=== PATIENT | female | born 1975 | race African-American/Black ===

== ENCOUNTER 2017-03-05 17:14 | Emergency (ER) | payer MEDICAID ==
[~2017-03-05] VITALS: Ht 162.6 cm; Wt 67.6 kg
[~2017-03-05 17:14] MED LIST: ACETAMINOPHEN-1 EAC1 ORAL; ALMACONE-2 LIQ355 ML PO; AMBIEN10 MG PO; ATIVAN0.5 MG PO; AUGMENTIN 875-1 EAC1 ORAL; AURALGAN OTIC1 DROP LEFT EAR; CILOXAN5 ML OP; CIPRO HC OTIC S10 M1 LEFT EYE; CIPRO500 MG PO; COLACE100 MG ORAL; CORTISPORIN EAR10 ML OTIC; DOXYCYCLINE MO100 MG ORAL; KEFLEX500 MG ORAL; KENALOG 0.1% CR15 GM TOPIC; MACROBID100 MG ORAL; MOBIC15 MG ORAL; NEXAFED30 MG ORAL; NEXIUM40 MG ORAL; NKM; NORCO 5-325 TA1 EACH ORAL; NORCO 5-325 TA1 EACH PO; ONDANSETRON ODT4 MG ORAL; PERCOCET 5-3251 EACH ORAL; PREDNISONE20 MG ORAL; PROMETHAZINE-C118 M1 ORAL; PROTONIX40 MG PO; ROBAXIN-750750 MG PO; TRAMADOL HCL50 MG ORAL; TRAMADOL HCL50 MG PO; TYLENOL EXTRA500 MG ORAL; VICODIN ES 7.51 EACH PO; ZOFRAN ODT4 MG ORAL
[2017-03-05 17:30] VITALS: BP 141/99
[2017-03-05] MEDS ORDERED: Fluorescein Strips LEFT EYE ONE (17:45)
[2017-03-05] MEDS ORDERED: Tetracaine 0.5% Opth Soln LEFT EYE ONE (17:45)
[2017-03-05] MEDS ORDERED: Morgan Lens TOPIC ONE (17:45)
--- NOTE | 2017-03-05 18:29 | Emergency Room Report ---
History of Present Illness General Chief Complaint: Eye Problems Source: Patient Present Illness HPI 41 YO Female presents to the ED c/o left eye pain described as burning 10/10 in severity, photophobia, and lacrimation, despite rinsing under water at home. denies floaters, loss of vision, PINEDA , or painful eye movements. pt. states some intermittent scratching sensations. pt. removed contacts as well. Pt. states she accidentally used a cleaning solution to soak her contacts in. and acute onset after applying her contacts. Denies CP, Palpitations, LOC, AMS, dizziness , Changes in Vision, Sensation, paresthesias, or a sudden severe headache. Allergies: Coded Allergies: IBUPROFEN (Verified Allergy, Severe, 04/27/13) abd ulcer Patient History Past Medical History: see triage record Past Surgical History: none Pertinent Family History: none Last Menstrual Period: na Now: No Immunizations: UTD Reviewed Nursing Documentation: PMH: Agreed, PSxH: Agreed Nursing Documentation-PMH Past Medical History: No History, Except For Hx Cardiac Problems: No - SCIATICA Hx Diabetes: Yes - Gestational Hx Gastrointestinal Problems: Yes - GERD Review of Systems All Other Systems: negative except mentioned in HPI Physical Exam Vital Signs Date Time Temp Pulse Resp B/P Pulse Ox O2 Delivery O2 Flow Rate FiO2 03/05/17 17:20 98.4 92 18 141/99 98 Room Air Sp02 EP Interpretation: reviewed, normal General Appearance: no apparent distress, alert, GCS 15, non-toxic Head: normocephalic, atraumatic Eyes: left eye photophobia, left eye visual acuity - 20/40Left eye, and 20/25 both, bilateral eye EOMI, bilateral eye PERRL, bilateral eye normal inspection ENT: hearing grossly normal, normal pharynx, no angioedema, normal voice Neck: full range of motion, supple/symm/no masses Respiratory: lungs clear, normal breath sounds, speaking full sentences Cardiovascular #1: regular rate, rhythm Rectal: deferred Musculoskeletal: back normal, gait/station normal, normal range of motion, non- tender Neurologic: alert, oriented x3, responsive, motor strength/tone normal, sensory intact, speech normal Psychiatric: judgement/insight normal, memory normal, mood/affect normal Skin: normal color, no rash, warm/dry, well hydrated Medical Decision Making PA Attestation Dr. Alonso is my supervising Physician whom patient management has been discussed with. Diagnostic Impression: Primary Impression: Conjunctivitis, chemical Qualified Codes: H10.212 - Acute toxic conjunctivitis, left eye ER Course 41 YO Female presents to the ED c/o left eye pain described as burning 10/10 in severity, photophobia, and lacrimation, despite rinsing under water at home. denies floaters, loss of vision, PINEDA , or painful eye movements. pt. states some intermittent scratching sensations. pt. removed contacts as well. Pt. states she accidentally used a cleaning solution to soak her contacts in. and acute onset after applying her contacts. Denies CP, Palpitations, LOC, AMS, dizziness , Changes in Vision, Sensation, paresthesias, or a sudden severe headache. - Pr. reports Contact lens use. Ddx considered but are not limited to: corneal abrasion, acute glaucoma, globe rupture, FB, Corneal Ulcer, conjunctivitis. Iridis Vital signs: are WNL, pt. is afebrile H&PE are most consistent with: Chemical Conjunctivitis ORDERS: -Tetracaine and Fluorescein Stain of the Left eye: -No appreciable Increase in fluorescein uptake. Negative Meghann sign. Pt. had positive relief of pain with tetracaine drops. there was negative evidence of Fb, deep ulcer, or rupture. - Balaji- pen measurements: 16,12,18 ED INTERVENTIONS: - [place] Irrigation with 500cc NS DISCHARGE: At this time pt. is stable for d/c to home. Will provide printed patient care instructions, and any necessary prescriptions. Care plan and follow up instructions have been discussed with the patient prior to discharge. . Last Vital Signs Date Time Temp Pulse Resp B/P Pulse Ox O2 Delivery O2 Flow Rate FiO2 03/05/17 17:30 98.5 92 18 141/99 98 Room Air Disposition: HOME, SELF-CARE Condition: Stable Scripts Ofloxacin (OCUFLOX) 5 Ml Drops 2 DROP OP BID for 7 Days, #5 ML Prov: Rose Marie Simpson P.A. 03/05/17 Diclofenac Sodium (Diclofenac Sodium) 5 Ml Drops 1 DROP OP QID, #5 ML Prov: Rose Marie Simpson P.A. 03/05/17 Referrals: [facility],REFERRING (PCP) Patient Instructions: Chemical Conjunctivitis Additional Instructions: Take medications as directed. Follow up with a BODY WELDER IN 48 hours, also follow up with your Primary Care Provider in 3-5 days, even if your symptoms have resolved. --Please review list of primary care clinics, if you do not already have a primary care provider Return sooner to ED if new symptoms occur, or current symptoms become worse. Do not drink alcohol, drive, or operate heavy machinery while taking [ ] as this may cause drowsiness. - Please note that this Emergency Department Report was dictated using [employer] melt supervisor technology software, occasionally this can lead to erroneous entry secondary to interpretation by the dictation equipment. Rose Marie Simpson Mar 05, 2017 18:29
[2017-03-05] MEDS ORDERED: DICLOFENAC SODIU5 ML OP (18:31)
[2017-03-05] MEDS ORDERED: OCUFLOX5 ML OP (18:31)
[2017-03-05 18:43] VITALS: BP 135/81
== END 2017-03-05 18:45 | disposition home or self-care (01) ==
LOC: EMR 17:47
DX: H10.212 Acute toxic conjunctivitis, left eye (principal); K21.9 Gastro-esophageal reflux disease without esophagitis; Z88.6 Allergy status to analgesic agent
CPT/HCPCS: 99284

== ENCOUNTER 2017-09-28 17:43 | Emergency (ER) | payer MEDICAID ==
[~2017-09-28] VITALS: Ht 162.6 cm; Wt 67.6 kg
[~2017-09-28 17:43] MED LIST changes: +DICLOFENAC SODIU5 ML OP; +OCUFLOX5 ML OP
[2017-09-28] MEDS ORDERED: Tetanus/Diptheria/Pertussis Vaccine 0.5ml Syr IM ONE (18:00)
[2017-09-28] MEDS ORDERED: NKM (18:26)
[2017-09-28] MEDS ORDERED: Bacitracin Oint UD TOPIC ONE (18:45)
--- NOTE | 2017-09-28 18:58 | Emergency Room Report ---
History of Present Illness General Chief Complaint: Laceration Source: Patient Present Illness HPI 42-year-old female presents to the emergency department complaining of bleeding after sustaining laceration while shaving with a new razor to the left lateral calf times one hour. Patient does not know when her last tetanus vaccination was. Patient reports pain is 5/10 in severity described as burning sensation. Patient reports she believes it is still bleeding. Patient denies taking blood thinning medications. Denies numbness tingling or loss of sensation or gross motor movements of the extremities, incontinence of bowel or bladder. Denies CP, Palpitations, LOC, AMS, dizziness, Changes in Vision, Sensation, paresthesias, or a sudden severe headache. Allergies: Coded Allergies: IBUPROFEN (Verified Allergy, Severe, 04/27/13) abd ulcer Patient History Past Medical History: see triage record Past Surgical History: none Pertinent Family History: none Now: No Reviewed Nursing Documentation: PMH: Agreed, PSxH: Agreed Nursing Documentation-PMH Past Medical History: No Stated History Hx Cardiac Problems: No - SCIATICA Hx Diabetes: Yes - Gestational Hx Gastrointestinal Problems: Yes - GERD Review of Systems All Other Systems: negative except mentioned in HPI Physical Exam Vital Signs Date Time Temp Pulse Resp B/P (MAP) Pulse Ox O2 Delivery O2 Flow Rate FiO2 09/28/17 17:56 98.0 74 18 126/78 97 Room Air 98.1 Sp02 EP Interpretation: reviewed, normal General Appearance: no apparent distress, alert, GCS 15, non-toxic Head: normocephalic, atraumatic ENT: hearing grossly normal, normal voice Neck: full range of motion Respiratory: lungs clear, normal breath sounds, speaking full sentences Cardiovascular #1: regular rate, rhythm Musculoskeletal: back normal, gait/station normal, normal range of motion, non- tender Neurologic: alert, oriented x3, responsive, motor strength/tone normal, sensory intact, speech normal, grossly normal Psychiatric: judgement/insight normal Skin: normal color, no rash, warm/dry, well hydrated, laceration - superficial avulsion lacerations approx 4 cm in length, and one that is 2cm in length both linear and superficial, bleeding stopped at this time. Medical Decision Making PA Attestation Dr. almonte is my supervising Physician whom patient management has been discussed with. Diagnostic Impression: Primary Impression: Laceration of leg Qualified Codes: S81.812A - Laceration without foreign body, left lower leg, initial encounter ER Course 42-year-old female presents to the emergency department complaining of bleeding after sustaining laceration while shaving with a new razor to the left lateral calf times one hour. Patient does not know when her last tetanus vaccination was. Patient reports pain is 5/10 in severity described as burning sensation. Patient reports she believes it is still bleeding. Patient denies taking blood thinning medications. Denies numbness tingling or loss of sensation or gross motor movements of the extremities, incontinence of bowel or bladder. Denies CP, Palpitations, LOC, AMS, dizziness, Changes in Vision, Sensation, paresthesias, or a sudden severe headache. Ddx considered but are not limited to laceration, tendon injury, cellulitis, amputation Vital signs: are WNL, pt. is afebrile H&PE are most consistent with: superficial avulsions lacerations approx 4 cm in length, and one that is 2cm in length both linear and superficial, bleeding stopped at this time. ORDERS: none required at this time, the diagnosis is clinical ED INTERVENTIONS: -Tetanus vaccine was administered as pt. vaccination status was unknown. -Bacitracin and sterile dressing is applied. Sutures were not necessary. Discussed with patient: That we make every effort to approximate the laceration as best as we can so that scarring will be as cosmetically pleasing as possible with our limited cosmetic skill set in the Emergency dept. Regardless of our best efforts there will be scarring after laceration repair. The extent of scarring is unknown at this time. DISCHARGE: At this time pt. is stable for d/c to home. Will provide printed patient care instructions, and any necessary prescriptions. Care plan and follow up instructions have been discussed with the patient prior to discharge. Last Vital Signs Date Time Temp Pulse Resp B/P (MAP) Pulse Ox O2 Delivery O2 Flow Rate FiO2 09/28/17 17:56 98.0 74 18 126/78 97 Room Air 98.1 Disposition: HOME, SELF-CARE Condition: Stable Scripts Emollient Combination No.46 (MEDERMA) 20 Gm Cream..g. 1 APPLIC TP TID, #20 GM 2 Refills Prov: Rose Marie Simpson 09/28/17 Bacitracin/Polymyxin B Sulfate (BACITRACIN-POLYMYXIN OINTMENT) 28.35 Gm Oint...g. 1 APPLIC TP BID, #28.3 GM Prov: Rose Marie Simpson 09/28/17 Patient Instructions: Nonsutured Laceration Care Additional Instructions: Take medications as directed. Follow up with a Primary Care Provider in 3-5 days, even if your symptoms have resolved. --Please review list of primary care clinics, if you do not already have a primary care provider Return sooner to ED if new symptoms occur, or current symptoms become worse. - Please note that this Emergency Department Report was dictated using [employer] web developer technology software, occasionally this can lead to erroneous entry secondary to interpretation by the dictation equipment. Rose Marie Simpson Sep 28, 2017 18:58
[2017-09-28] MEDS ORDERED: MEDERMA20 GM TP (19:00)
[2017-09-28] MEDS ORDERED: BACITRACIN-P28.35 GM TP (19:00)
[2017-09-28 19:13] VITALS: BP 131/90
[2017-09-28 19:14] VITALS: BP 131/90
== END 2017-09-28 19:14 | disposition home or self-care (01) ==
LOC: EMR 18:15
DX: S81.812A Laceration without foreign body, left lower leg, initial encounter (principal); W45.8XXA Other foreign body or object entering through skin, initial encounter; Y93.E8 Activity, other personal hygiene; Y92.9 Unspecified place or not applicable; Z23 Encounter for immunization; Z88.6 Allergy status to analgesic agent; K21.9 Gastro-esophageal reflux disease without esophagitis
CPT/HCPCS: 90471; 90715; 99283

== ENCOUNTER 2018-02-12 17:44 | Emergency (ER) | payer MEDICAID ==
[~2018-02-12] VITALS: Ht 162.6 cm; Wt 67.6 kg
[~2018-02-12 17:44] MED LIST changes: +BACITRACIN-P28.35 GM TP; +MEDERMA20 GM TP
[2018-02-12] MEDS ORDERED: Norco 5mg/325mg tab ORAL ONE (18:00)
[2018-02-12 18:06] VITALS: BP 115/69
--- NOTE | 2018-02-12 18:52 | Emergency Room Report ---
History of Present Illness General Chief Complaint: Multiple Trauma/Fall Present Illness HPI 42-year-old female presents emergency department complaining of 10 out of 10 in severity pain, tenderness and swelling to the left wrist in addition to scrapes to the left knee and right hand status post mechanical fall from skateboard. pain is exacerbated with palpation or movement of the left wrist. denies hand or elbow pain. pt. reports soreness in the left shoulder area. Denies bony tenderness. Patient denies hitting her head or loss of consciousness. Patient denies midline neck or back pain. Patient is up-to-date with tetanus vaccination. Denies numbness tingling or loss of sensation or gross motor movements of the extremities, incontinence of bowel or bladder. Denies CP, Palpitations, LOC, AMS, dizziness, Changes in Vision, weakness or a sudden severe headache. Allergies: Coded Allergies: IBUPROFEN (Verified Allergy, Severe, 04/27/13) abd ulcer Patient History Past Medical History: see triage record Past Surgical History: none Pertinent Family History: none Last Menstrual Period: 02/04/18 Now: No Reviewed Nursing Documentation: PMH: Agreed; PSxH: Agreed Nursing Documentation-PMH Hx Cardiac Problems: No - SCIATICA Hx Diabetes: Yes - Gestational Hx Gastrointestinal Problems: Yes - GERD Review of Systems All Other Systems: negative except mentioned in HPI Physical Exam Vital Signs Date Time Temp Pulse Resp B/P (MAP) Pulse Ox O2 Delivery O2 Flow Rate FiO2 02/12/18 17:48 97.7 96 16 115/69 96 Room Air 97.7 Sp02 EP Interpretation: reviewed, normal General Appearance: no apparent distress, alert, GCS 15, non-toxic Head: normocephalic, atraumatic Eyes: bilateral eye normal inspection, bilateral eye PERRL ENT: hearing grossly normal, normal voice Neck: full range of motion, no bony tend, tender lateral - left lateral aspect of trapezius, FROM Respiratory: chest non-tender, lungs clear, normal breath sounds, speaking full sentences Cardiovascular #1: regular rate, rhythm, normal capillary refill Musculoskeletal: back normal, gait/station normal, normal range of motion, tender - TTP to the left wrist, no snuff box ttp. TTp to the lateral soft tissues of the left shoulder, FROM , NVI Neurologic: alert, oriented x3, responsive, motor strength/tone normal, sensory intact, normal gait, speech normal, grossly normal Psychiatric: judgement/insight normal Skin: normal color, no rash, warm/dry, well hydrated, abrasions - to the left left stovall, and distal dorsal right index finger. not bleeding at this time. no obvious fb's Medical Decision Making PA Attestation Dr. Gomez is my supervising Physician whom patient management has been discussed with. Diagnostic Impression: Primary Impression: Left wrist sprain Qualified Codes: S63.502A - Unspecified sprain of left wrist, initial encounter Additional Impressions: Abrasions of multiple sites Strain of cervical portion of left trapezius muscle ER Course 42-year-old female presents emergency department complaining of 10 out of 10 in severity pain, tenderness and swelling to the left wrist in addition to scrapes to the left knee and right hand status post mechanical fall from skateboard. pain is exacerbated with palpation or movement of the left wrist. denies hand or elbow pain. pt. reports soreness in the left shoulder area. Denies bony tenderness. Patient denies hitting her head or loss of consciousness. Patient denies midline neck or back pain. Patient is up-to-date with tetanus vaccination. Denies numbness tingling or loss of sensation or gross motor movements of the extremities, incontinence of bowel or bladder. Denies CP, Palpitations, LOC, AMS, dizziness, Changes in Vision, weakness or a sudden severe headache. Ddx considered but are not limited to Fracture, dislocation, contusion, Sprain/ Strain/Spasm,abrasions, ST-Fb, Vital signs: are WNL, pt. is afebrile H&PE are most consistent with musculoskeletal injury will perform imaging to r/ o fractures/dislocations. ORDERS: - X-ray Left wrist 3 views - negative for fx, Dislocation, or significant soft tissue injury, per preliminary read in ED, and signed by LILO Simpson , my supervising physician has reviewed, and agrees with my interpretation. ED INTERVENTIONS: - Oral pain medication -wound cleaning and bacitracin application. Pre-fabricated left wrist splint applied by certified medication technician. Pt. remains neurovascularly intact. DISCHARGE: At this time pt. is stable for d/c to home. Will provide printed patient care instructions, and any necessary prescriptions. Care plan and follow up instructions have been discussed with the patient prior to discharge. Other X-Ray Diagnostic Results Other X-Ray Diagnostic Results : X-Ray ordered: Left Wrist # of Views/Limited Vs Complete: 3 View Indication: Pain EP Interpretation: Yes PA Xray: Interpretation reviewed, by supervising MD, and agrees with findings. Interpretation: no dislocation, no soft tissue swelling, no fractures Impression: No acute disease Electronically Signed by: Rose Marie Simpson PA-C Last Vital Signs Date Time Temp Pulse Resp B/P (MAP) Pulse Ox O2 Delivery O2 Flow Rate FiO2 02/12/18 18:06 98.0 16 115/69 96 Room Air 98.0 02/12/18 17:48 96 Disposition: HOME, SELF-CARE Condition: Stable Scripts Bacitracin/Polymyxin B Sulfate (BACITRACIN-POLYMYXIN OINTMENT) 28.35 Gm Oint...g. 1 APPLIC TP BID, #28.3 GM Prov: Rose Marie Simpson 02/12/18 Methocarbamol* (ROBAXIN*) 500 Mg Tablet 1000 MG PO TID for 5 Days, #30 TAB 0 Refills Prov: Rose Marie Simpson 02/12/18 Acetaminophen* (TYLENOL EXTRA STRENGTH*) 500 Mg Tablet 500 MG ORAL Q6H, #20 TAB 0 Refills Prov: Rose Marie Simpson 02/12/18 Patient Instructions: Abrasion, [id number], Wrist Sprain Additional Instructions: Take medications as directed. Follow up with a Primary Care Provider in 3-5 days, even if your symptoms have resolved. --Please review list of primary care clinics, if you do not already have a primary care provider Return sooner to ED if new symptoms occur, or current symptoms become worse. Do not drink alcohol, drive, or operate heavy machinery while taking Robaxin as this may cause drowsiness. - Please note that this Emergency Department Report was dictated using [employer] trimmer technology software, occasionally this can lead to erroneous entry secondary to interpretation by the dictation equipment. Rose Marie Simpson Feb 12, 2018 18:51
[2018-02-12] MEDS ORDERED: TYLENOL EXTRA500 MG ORAL (18:53)
[2018-02-12] MEDS ORDERED: BACITRACIN-P28.35 GM TP (18:53)
[2018-02-12] MEDS ORDERED: ROBAXIN500 MG PO (18:53)
[2018-02-12 19:04] VITALS: BP 115/69
--- NOTE | 2018-02-13 11:26 | Diagnostic Imaging Report ---
Indication: Pain left wrist pain Findings: 3 views of the left wrist were obtained. No acute fractures, malalignment, erosions or periostitis are identified. Soft tissues are unremarkable. Impression: No acute findings.
== END 2018-02-12 19:05 | disposition home or self-care (01) ==
LOC: EMR 19:04
DX: S63.502A Unspecified sprain of left wrist, initial encounter (principal); S80.212A Abrasion, left knee, initial encounter; S60.511A Abrasion of right hand, initial encounter; V00.131A Fall from skateboard, initial encounter; Y93.9 Activity, unspecified; Y92.9 Unspecified place or not applicable; Z88.6 Allergy status to analgesic agent; K21.9 Gastro-esophageal reflux disease without esophagitis
CPT/HCPCS: 99284

== ENCOUNTER 2018-04-18 16:21 | Emergency (ER) | payer MEDICAID ==
[~2018-04-18] VITALS: Ht 162.6 cm; Wt 69.9 kg
[~2018-04-18 16:21] MED LIST changes: +ROBAXIN500 MG PO
[2018-04-18 16:30] VITALS: BP 118/78
[2018-04-18] MEDS ORDERED: CEPHALEXIN500 MG ORAL (17:24)
[2018-04-18] MEDS ORDERED: HYDROCORTISONE30 G2 TP (17:24)
--- NOTE | 2018-04-18 17:24 | Emergency Room Report ---
History of Present Illness General Chief Complaint: Skin Rash/Abscess Source: Patient Present Illness HPI 42-year-old female presents to the emergency department complaining of 2 insect bites located on the right buttocks 2 days. Patient reports moderate itching, swelling, erythema and some new onset tenderness. Patient denies fevers or chills. Patient denies use of medications to help with her symptoms. Pt. denies fevers, chills or swollen tender lymph nodes. Denies lesions/rashes elsewhere on the body. Denies new medications or body washes or creams. Denies swelling of the lips, tongue , throat or airway. Denies wheezing, or shortness of breath. Denies recent travel, recent illness or ill contacts. denies blisters, oral lesions, or sloughing of the skin Allergies: Coded Allergies: IBUPROFEN (Verified Allergy, Severe, 04/18/18) abd ulcer Patient History Past Medical History: see triage record Past Surgical History: none Pertinent Family History: none Last Menstrual Period: 04/11/18 Now: No Reviewed Nursing Documentation: PMH: Agreed; PSxH: Agreed Nursing Documentation-PMH Past Medical History: No Stated History Hx Cardiac Problems: No - SCIATICA Hx Diabetes: Yes - Gestational Hx Gastrointestinal Problems: Yes - GERD Review of Systems All Other Systems: negative except mentioned in HPI Physical Exam Vital Signs Date Time Temp Pulse Resp B/P (MAP) Pulse Ox O2 Delivery O2 Flow Rate FiO2 04/18/18 16:25 97.9 72 16 118/78 98 Room Air 97.9 Sp02 EP Interpretation: reviewed, normal General Appearance: no apparent distress, alert, GCS 15, non-toxic Head: normocephalic, atraumatic ENT: hearing grossly normal, normal pharynx, no angioedema, normal voice, other - no swelling of the lips or tongue, no stridor. Neck: full range of motion Respiratory: lungs clear, normal breath sounds, speaking full sentences Cardiovascular #1: regular rate, rhythm Rectal: deferred Musculoskeletal: back normal, gait/station normal, normal range of motion, non- tender Neurologic: alert, oriented x3, responsive, motor strength/tone normal, sensory intact, normal gait, speech normal, grossly normal Psychiatric: judgement/insight normal Skin: normal color, warm/dry, well hydrated, other - Two discrete 1cm circular lesions with surrounding erythema and excoriations, no palpable fluctuance, some increased temperature to palpation, no d/c, blisters or vesicles. Medical Decision Making PA Attestation Dr. Bucio is my supervising Physician whom patient management has been discussed with. Diagnostic Impression: Primary Impression: Insect bite Qualified Codes: W57.XXXA - Bitten or stung by nonvenomous insect and other nonvenomous arthropods, initial encounter ER Course 42-year-old female presents to the emergency department complaining of 2 insect bites located on the right buttocks 2 days. Patient reports moderate itching, swelling, erythema and some new onset tenderness. Patient denies fevers or chills. Patient denies use of medications to help with her symptoms. Pt. denies fevers, chills or swollen tender lymph nodes. Denies lesions/rashes elsewhere on the body. Denies new medications or body washes or creams. Denies swelling of the lips, tongue , throat or airway. Denies wheezing, or shortness of breath. Denies recent travel, recent illness or ill contacts. denies blisters, oral lesions, or sloughing of the skin Ddx considered but are not limited to cellulitis, scabies, insect bites, tic bites, spider bites, contact dermatitis, Drug reaction, allergic reaction, fungal infection, lice. Vital signs: are WNL, pt. is afebrile H&PE are most consistent with multiple insect bites, mild cellulitis and compromised skin system. ORDERS: none required at this time, the diagnosis is clinical ED INTERVENTIONS: -Hydrocortisone Cream TP. DISCHARGE: At this time pt. is stable for d/c to home. Will provide printed patient care instructions, and any necessary prescriptions. Care plan and follow up instructions have been discussed with the patient prior to discharge. Last Vital Signs Date Time Temp Pulse Resp B/P (MAP) Pulse Ox O2 Delivery O2 Flow Rate FiO2 04/18/18 16:30 97.9 72 16 118/78 98 Room Air 97.9 Disposition: HOME, SELF-CARE Condition: Stable Scripts Cephalexin* (KEFLEX*) 500 Mg Capsule 500 MG ORAL EVERY 12 HOURS for 7 Days, #14 CAP 0 Refills Prov: Rose Marie Simpson 04/18/18 Hydrocortisone (Hydrocortisone Cream 2.5%) Y Cream.appl 1 APPLIC TP BID, #28.3 GM Prov: Rose Marie Simpson 04/18/18 Referrals: NON PHYSICIAN (PCP) Patient Instructions: Insect Bite, [id number] Additional Instructions: Take medications as directed. Follow up with a Primary Care Provider in 3-5 days, even if your symptoms have resolved. --Please review list of primary care clinics, if you do not already have a primary care provider Return sooner to ED if new symptoms occur, or current symptoms become worse. - Please note that this Emergency Department Report was dictated using [employer] restorer technology software, occasionally this can lead to erroneous entry secondary to interpretation by the dictation equipment. Rose Marie Simpson Apr 18, 2018 17:24
[2018-04-18 18:03] VITALS: BP 122/71
== END 2018-04-18 18:05 | disposition home or self-care (01) ==
LOC: EMR 16:45
DX: S30.860A Insect bite (nonvenomous) of lower back and pelvis, initial encounter (principal); W57.XXXA Bitten or stung by nonvenomous insect and other nonvenomous arthropods, initial encounter; Y92.89 Other specified places as the place of occurrence of the external cause; K21.9 Gastro-esophageal reflux disease without esophagitis
CPT/HCPCS: 99282

== ENCOUNTER 2018-05-18 16:40 | Emergency (ER) | payer MEDICAID ==
[~2018-05-18] VITALS: Ht 162.6 cm; Wt 69.9 kg
[~2018-05-18 16:40] MED LIST changes: +CEPHALEXIN500 MG ORAL; +HYDROCORTISONE30 G2 TP
[2018-05-18 17:06] LABS: APPEARANCE,URINE CLEAR; BILIRUBIN, URINE NEGATIVE (NEGATIVE); GLUCOSE, URINE (UA) NEGATIVE (NEGATIVE); KETONES,URINE NEGATIVE (NEGATIVE); LEUKOCYTE ESTERASE ,URINE 2+ (NEGATIVE); NITRITE,URINE NEGATIVE (NEGATIVE); PH,URINE 5 (4.5-8.0); PROTEIN,URINE 2+ (NEGATIVE); UROBILINOGEN,URINE NORMAL MG/DL (0.0-1.0)
[2018-05-18 17:08] LABS: COLOR,URINE YELLOW
--- NOTE | 2018-05-18 17:14 | Emergency Room Report ---
History of Present Illness General Chief Complaint: Back Pain-No Injury Source: Patient, Medical Record Present Illness HPI 43-year-old female patient presents ER complaining of right-sided flank pain for the past 4 days. reports pain is sharp in nature. Also reports small cramp- like pain at the end of urinating.. Reports she was seen by primary care provider earlier today and given a dose of Ultram which she says did not help relieve her symptoms, states afterwards 10 AM she started took for 500 mg Tylenol medications. he states that the took a sample of her urine at her primary care but states it would take a few days before came back, patient states that pain was worse at work so she decided to come to ER to get urine test done more quickly. Denies injury or trauma. Denies fever, vomiting, chest pain, shortness of breath, abdominal pain, diarrhea. Denies pain radiating down legs. denies dysuria, hematuria, vaginal discharge, foul smelling odor. Allergies: Coded Allergies: IBUPROFEN (Verified Allergy, Severe, 04/18/18) abd ulcer Patient History Past Medical History: see triage record Reviewed Nursing Documentation: PMH: Agreed; PSxH: Agreed Nursing Documentation-PMH Hx Cardiac Problems: No - SCIATICA Hx Diabetes: Yes - Gestational Hx Gastrointestinal Problems: Yes - GERD Review of Systems All Other Systems: negative except mentioned in HPI Physical Exam Vital Signs Date Time Temp Pulse Resp B/P (MAP) Pulse Ox O2 Delivery O2 Flow Rate FiO2 05/18/18 16:46 98.3 87 18 127/84 96 Room Air 98.2 Sp02 EP Interpretation: reviewed, normal General Appearance: well appearing, no apparent distress, alert, GCS 15, non- toxic Head: normocephalic, atraumatic Eyes: bilateral eye normal inspection, bilateral eye PERRL ENT: hearing grossly normal, normal pharynx, no angioedema, normal voice, uvula midline, moist mucus membranes Neck: full range of motion Respiratory: lungs clear, normal breath sounds, no rhonchi, no respiratory distress, no accessory muscle use, no wheezing, speaking full sentences Cardiovascular #1: regular rate, rhythm, no edema Genitourinary: CVA tenderness (R) Musculoskeletal: back normal - no spinous process tenderness or bony depression , digits/nails normal, gait/station normal, normal range of motion, non-tender Neurologic: alert, oriented x3, responsive, motor strength/tone normal, SLR negative, sensory intact Psychiatric: mood/affect normal Skin: no rash Medical Decision Making PA Attestation Dr. Bucio is my supervising Physician whom patient management has been discussed with.Dr. Bucio is my supervising Physician whom patient management has been discussed with. Diagnostic Impression: Primary Impression: Muscle strain Additional Impression: Parapelvic renal cyst ER Course Pt. presents to the ED c/o right-sided mid back pain. Ddx considered but are not limited to UTI, for cystitis, nephrolithiasis, hydronephrosis. Begin abdominal pain workup. Provided patient with pain medication. Vital signs: are WNL, pt. is afebrile ORDERS: CBC, CMP, Lipase, UA, Urine , CT abdomen pelvis, and pain medication. ER COURSE: provide with pain medication. patient states that she has "gastric bleeding" when she takes ibuprofen, denies rash, vomiting, shortness of breath. Okay to provide patient with Toradol for pain symptoms. Informed patient does not likely have allergy to ibuprofen, more likely gastric distress as a result of ibuprofen. Advised patient on this, for patient to take Tylenol for pain symptoms. CBC and CMP unremarkable, no elevation WBCs or LFTs Lipase not elevated, WNL UA no signs of infection, low suspicion for UTI. Urine negative Results discussed with patient. CT shows no renal stones or hydronephrosis, nondistended bladder, no appendicitis, peripelvic Renal cysts, 1.2 cm hyperdense focus within urethra or vagina, cysts and hyperdense focus previously present on CT, Advised patient to follow up with primary care provider, call tomorrow to get official report, take report and discuss findings with primary care provider. discuss referral to or [employer]ARM[employer] specialist. on repeat examination, patient reports feeling better following administration of fluids and pain medication. Patient reports recent history of working out doing from squats, states she wants to know if "that could be causing" her pain symptoms, due to muscle strain. will provide patient with Tylenol, lidocaine patches, muscle relaxant at discharged home. Advised patient to rest, ice, heat. Discuss referral to physical therapy with primary care provider. ER precautions given, return to ER for new or worsening of symptoms including but not limited to worsening of pain, intractable vomiting, chest pain, shortness of breath, hematuria. Patient reports relief of pain symptoms with medication in ER. patient states she is to be discharged home. DISCHARGE: Rx provided for and Robaxin Rx provided for Tylenol Rx provided for lidocaine patch At this time pt. is stable for d/c to home. Patient resting comfortably, in no acute distress, nontoxic appearing, talking without difficulty. Rx provided to patient. Patient to take medications as instructed Will provide with patient care instructions and any necessary prescriptions. Care plan and follow-up instructions provided. Patient instructed to follow-up with primary care provider in 3 - 5 days. Patient questions asked and answered. Patient reports understanding and agreement to treatment plan. ER precautions given. Patient instructed to return to ER immediately for any new or worsening of symptoms including but not limited to increasing SOB, persistent fever, worsening of pain symptoms, intractable vomiting, blood in stool, urine, and/or emesis. - Please note that this Emergency Department Report was dictated using [employer] lat[employer] tender technology software, occasionally this can lead to erroneous entry secondary to interpretation by the dictation equipment. Labs Test 05/18/18 16:56 05/18/18 17:27 05/18/18 18:40 Urine Color Yellow Urine Appearance Clear Urine pH 5 (4.5-8.0) Urine Specific [place] 1.025 (1.005-1.035) Urine Protein 2+ (NEGATIVE) Urine Glucose (UA) Negative (NEGATIVE) Urine Ketones Negative (NEGATIVE) Urine Blood Negative (NEGATIVE) Urine Nitrite Negative (NEGATIVE) Urine Bilirubin Negative (NEGATIVE) Urine Urobilinogen Normal MG/DL (0.0-1.0) Urine Leukocyte Esterase 2+ (NEGATIVE) Urine RBC 0-2 /HPF (0 - 2) Urine WBC 2-4 /HPF (0 - 2) Urine Squamous Epithelial Cells Few /LPF (NONE/OCC) Urine Bacteria Few /HPF (NONE) Urine HCG, Qualitative Negative (NEGATIVE) White Blood Count 6.0 K/UL (4.8-10.8) Red Blood Count 4.75 M/UL (4.20-5.40) Hemoglobin 13.7 G/DL (12.0-16.0) Hematocrit 40.4 % (37.0-47.0) Mean Corpuscular Volume 85 FL (80-99) Mean Corpuscular Hemoglobin 28.8 PG (27.0-31.0) Mean Corpuscular Hemoglobin Concent 33.9 G/DL (32.0-36.0) Red Cell Distribution Width 10.9 % (11.6-14.8) Platelet Count 226 K/UL (150-450) Mean Platelet Volume 7.7 FL (6.5-10.1) Neutrophils (%) (Auto) 42.7 % (45.0-75.0) Lymphocytes (%) (Auto) 45.4 % (20.0-45.0) Monocytes (%) (Auto) 8.4 % (1.0-10.0) Eosinophils (%) (Auto) 1.7 % (0.0-3.0) Basophils (%) (Auto) 1.7 % (0.0-2.0) Sodium Level 140 MMOL/L (136-145) Potassium Level 3.6 MMOL/L (3.5-5.1) Chloride Level 105 MMOL/L (98-107) Carbon Dioxide Level 28 MMOL/L (21-32) Anion Gap 7 mmol/L (5-15) Blood Urea Nitrogen 14 mg/dL (7-18) Creatinine 0.8 MG/DL (0.55-1.30) Estimat Glomerular Filtration Rate > 60 mL/min (>60) Glucose Level 78 MG/DL (74-106) Calcium Level 8.7 MG/DL (8.5-10.1) Total Bilirubin 0.3 MG/DL (0.2-1.0) Aspartate Amino Transf (AST/SGOT) 21 U/L (15-37) Alanine Aminotransferase (ALT/SGPT) 23 U/L (12-78) Alkaline Phosphatase 67 U/L (46-116) Total Protein 7.4 G/DL (6.4-8.2) Albumin 3.6 G/DL (3.4-5.0) Globulin 3.8 g/dL Albumin/Globulin Ratio 0.9 (1.0-2.7) Lipase 122 U/L (73-393) CT/MRI/US Diagnostic Results CT/MRI/US Diagnostic Results : Imaging Test Ordered: CT abdomen and pelvis Impression no renal stones or hydronephrosis, bladder nondistended, appendix questionably identified. No secondary signs, 1.2 cm hyperdense focus within within urethra or vagina of uncertain etiology but present in 2012 change, possible polyp, peripelvic cysts suspected left kidney, unchanged Last Vital Signs Date Time Temp Pulse Resp B/P (MAP) Pulse Ox O2 Delivery O2 Flow Rate FiO2 05/18/18 16:46 98.3 87 18 127/84 96 Room Air 98.2 Status: improved Disposition: HOME, SELF-CARE Condition: Stable Scripts Acetaminophen* (TYLENOL EXTRA STRENGTH*) 500 Mg Tablet 500 MG ORAL Q8H PRN for Prn Headache/Temp > 101, #30 TAB 0 Refills Prov: Yoni Rosado 05/18/18 Methocarbamol* (ROBAXIN*) 500 Mg Tablet 500 MG PO TID, #21 TAB 0 Refills Prov: Yoni Rosado 05/18/18 Lidocaine (Lidocaine) 1 Each Adh..patch 5 % TP DAILY for 7 Days, #7 PATCH Prov: Yoni Rosado 05/18/18 Patient Instructions: Muscle Strain, [id number], Renal Mass Additional Instructions: Patient instructed to follow up with primary care provider 3-5 and discuss further referral and imaging at that time. Discuss results of CT with primary care provider and need for further referral at that time. Discuss referral to and [employer] as needed. Drink plenty of fluids. Patient instructed on rest, ice and heat. Do not take muscle relaxant prior to drinking, driving, or operating heavy machinery. Take medications as directed. Patient questions asked and answered. ER precautions given, patient instructed to return to ER immediately for any new or worsening of symptoms. Yoni Rosado May 18, 2018 17:14
[2018-05-18] MEDS ORDERED: Ketorolac 30mg Inj IM ONE (17:15)
[2018-05-18 17:26] VITALS: BP 127/84
[2018-05-18 18:01] LABS: BASOPHILS % (AUTO) 1.7 % (0.0-2.0); EOSINOPHILS % (AUTO) 1.7 % (0.0-3.0); HEMATOCRIT 40.4 % (37.0-47.0); HEMOGLOBIN 13.7 G/DL (12.0-16.0); LYMPHOCYTES % (AUTO) 45.4 % (20.0-45.0); MEAN CORPUSCULAR VOLUME 85 FL (80-99); MONOCYTES % (AUTO) 8.4 % (1.0-10.0); NEUTROPHILS % (AUTO) 42.7 % (45.0-75.0); PLATELET COUNT 226 K/UL (150-450); RED BLOOD COUNT 4.75 M/UL (4.20-5.40); RED CELL DISTRIBUTION WIDTH 10.9 % (11.6-14.8)
[2018-05-18 19:07] LABS: BLOOD UREA NITROGEN 14 mg/dL (7-18); SODIUM 140 MMOL/L (136-145)
[2018-05-18 19:11] LABS: ALANINE AMINOTRANSFERASE 23 U/L (12-78); ALBUMIN 3.6 G/DL (3.4-5.0); ALBUMIN/GLOBULIN RATIO 0.9 (1.0-2.7); ALKALINE PHOSPHATASE 67 U/L (46-116); ANION GAP 7 mmol/L (5-15); ASPARTATE AMINO TRANSFERASE 21 U/L (15-37); BILIRUBIN,TOTAL 0.3 MG/DL (0.2-1.0); CALCIUM 8.7 MG/DL (8.5-10.1); CARBON DIOXIDE 28 MMOL/L (21-32); CHLORIDE 105 MMOL/L (98-107); CREATININE 0.8 MG/DL (0.55-1.30); POTASSIUM 3.6 MMOL/L (3.5-5.1)
[2018-05-18] MEDS ORDERED: ROBAXIN500 MG PO (19:18)
[2018-05-18] MEDS ORDERED: LIDOCAINE700 M1 TP (19:18)
[2018-05-18] MEDS ORDERED: TYLENOL EXTRA500 MG ORAL (19:18)
[2018-05-18 19:25] VITALS: BP 127/87
--- NOTE | 2018-05-19 09:46 | Diagnostic Imaging Report ---
Indication: Abdominal pain Technique: Continuous helical transaxial imaging of the abdomen and pelvis was obtained from the lung bases to the pubic symphysis. No intravenous contrast was administered. Coronal 2-D reformats were also obtained. Automatic Exposure Control was utilized. Total Dose length Product (DLP): 779.[address] Dose Index Volume (CTDIvol): 15.47 mGy Comparison: 01/02/2013 Findings: Suggestion of parapelvic cysts in the left kidney not optimally evaluated on noncontrast imaging. There ureters are partially seen but as visualized do not appear dilated. The gallbladder is unremarkable. The bladder is mostly nondistended. The appendix may be partially seen. There are no secondary signs of acute appendicitis. No free fluid or free air identified. In the area of the lower vagina or urethra there is a 1.2 cm hyperdensity the nature of which is not known. This was seen on the last exam as well in 2012. This may be a small polyp or cystic focus. IMPRESSION: No acute findings appreciated. No significant change from the previous exam done in 2013. Suggestion of parapelvic cysts within the left kidney. 1.2 cm round hyperdensity in the area of the urethra/vagina. Etiology unknown. Consider small cyst versus polyp. The CT scanner at [facility] is accredited by the [employer] and the scans are performed using dose optimization techniques as appropriate to a performed exam including Automatic Exposure control.
== END 2018-05-18 19:25 | disposition home or self-care (01) ==
LOC: EMR 18:02
DX: S39.011A Strain of muscle, fascia and tendon of abdomen, initial encounter (principal); X58.XXXA Exposure to other specified factors, initial encounter; Y92.9 Unspecified place or not applicable; N28.1 Cyst of kidney, acquired; K21.9 Gastro-esophageal reflux disease without esophagitis; Z88.6 Allergy status to analgesic agent
CPT/HCPCS: 36415; 74176; 80053; 81003; 81025; 83690; 85025; 96360; 96372; 99284; J1885

== ENCOUNTER 2019-02-23 11:52 | Emergency (ER) | payer MEDICAID ==
[~2019-02-23] VITALS: Ht 162.6 cm; Wt 72.6 kg
[~2019-02-23 11:52] MED LIST changes: +LIDOCAINE700 M1 TP
[2019-02-23] MEDS ORDERED: ACETAMINOPHEN-1 EAC1 ORAL (12:03)
[2019-02-23] MEDS ORDERED: CEPHALEXIN500 MG ORAL (12:03)
--- NOTE | 2019-02-23 12:05 | NUR ---
ED Nurse Note: Patient walked into ED c/o pain 10/10 throbbing on the left upper jaw and facial area after her tooth extration. patient also reports hx of TALISHA and feeling anxious and palpitations on the chest. patient is alert awake x4 ambulatory, breathing unlabored and even. patient placed on cardiac surgeon, Sinus rhythm noted, ekg being done at bedside.
[2019-02-23 12:18] VITALS: BP 124/84
[2019-02-23 12:23] VITALS: BP 121/82
[2019-02-23] MEDS ORDERED: LORazepam 1mg tab ORAL ONE (12:30)
[2019-02-23] MEDS ORDERED: Ketorolac 60mg Inj IM ONE (12:30)
--- NOTE | 2019-02-23 12:31 | Emergency Room Report ---
History of Present Illness General Chief Complaint: Palpitations Source: Patient Present Illness HPI 3-year-old female comes here with complaints of left facial pain after having had tooth extraction 3 weeks ago, she is tried Tylenol 3, Keflex, and then went to see her dentist again today, he prescribed her [place] as well as clindamycin, and is not sure why she was having so much pain. The pain is severe, and only has temporary relief with the pain meds she is been given so far. She has not filled her prescription for [place] or clindamycin as that was just given today. Allergies: Coded Allergies: IBUPROFEN (Verified Allergy, Severe, 04/18/18) abd ulcer Patient History Past Medical History: see triage record Reviewed Nursing Documentation: PMH: Agreed; PSxH: Agreed Nursing Documentation-PMH Past Medical History: No History, Except For Hx Cardiac Problems: No - SCIATICA Hx Diabetes: Yes - Gestational Hx Gastrointestinal Problems: Yes - GERD Review of Systems All Other Systems: negative except mentioned in HPI Physical Exam Vital Signs Date Time Temp Pulse Resp B/P (MAP) Pulse Ox O2 Delivery O2 Flow Rate FiO2 02/23/19 11:58 100.2 81 20 127/80 (96) 99 Room Air Sp02 EP Interpretation: reviewed, normal General Appearance: no apparent distress, alert, non-toxic Head: normocephalic Eyes: bilateral eye normal inspection, bilateral eye PERRL, bilateral eye EOMI ENT: normal ENT inspection, hearing grossly normal, normal pharynx, no angioedema, normal voice, TMs + canals normal, uvula midline, moist mucus membranes, other - Left maxillary gingiva with multiple missing teeth, but no erythema, no tenderness, no fluctuance Neck: normal inspection, full range of motion, supple, no bony tend, supple/ symm/no masses Respiratory: chest non-tender, lungs clear, normal breath sounds, chest symmetrical, palpation of chest normal Cardiovascular #1: normal peripheral pulses, regular rate, rhythm Cardiovascular #2: 2+ radial (R), 2+ radial (L) Gastrointestinal: normal inspection, non tender, soft, no mass, no guarding, no rebound Rectal: deferred Genitourinary: normal inspection, no CVA tenderness Musculoskeletal: back normal, gait/station normal, normal range of motion, non- tender, no calf tenderness Neurologic: alert, responsive, engineering director III-XII nml as tested, motor strength/tone normal, sensory intact, speech normal Psychiatric: judgement/insight normal, memory normal, anxious Lymphatic: no adenopathy Medical Decision Making Diagnostic Impression: Primary Impression: Palpitations Additional Impression: TMJ (temporomandibular joint syndrome) ER Course Patient with left-sided facial pain after having teeth extracted, I have low suspicion for infection, she has a symmetric normal physical and neurologic examination of her face and head, the dental extraction site is completely closed and healed over with no fluctuance erythema or tenderness, she has no facial asymmetry, I suspect patient may be having some sort of nerve pain or TMJ , will add on gabapentin but in the interim give her Toradol and Ativan here. EKG is unremarkable. Head CT shows no sinus disease. EKG Diagnostic Results EKG Time: 12:21 EP Interpretation: no stemi Rate: normal Rhythm: NSR ST Segments: no acute changes ASA given to the pt in ED: No Rhythm Strip Diag. Results Rhythm Strip Time: 12:30 EP Interpretation: yes Rate: 75 Rhythm: NSR, no PVC's, no ectopy CT/MRI/US Diagnostic Results CT/MRI/US Diagnostic Results : Imaging Test Ordered: ct head without dz Impression no acute dz, no sinus opacification Last Vital Signs Date Time Temp Pulse Resp B/P (MAP) Pulse Ox O2 Delivery O2 Flow Rate FiO2 02/23/19 12:23 98.4 79 15 121/82 100 Room Air Disposition: HOME, SELF-CARE Condition: Stable Referrals: [facility],REFERRING (PCP) FRANCHESKA HERNANDEZ M.D Feb 23, 2019 12:31
--- NOTE | 2019-02-23 12:37 | NUR ---
ED Nurse Note: patient went to CT in stable condition
--- NOTE | 2019-02-23 13:08 | Diagnostic Imaging Report ---
Indications: Headache, dizziness Technique: Spiral acquisitions obtained through the brain. Angled axial and coronal 5 x 5 mm slices were reconstructed. Total dose length product 1471.09 mGycm. CTDI vol(s) 70.38 mGy. Dose reduction achieved using automated exposure control Comparison: 07/15/2010 Findings: No acute intracranial hemorrhage or edema, mass effect, nor midline shift. Normal pulido-white differentiation. Normal-sized ventricles and extra-axial CSF spaces. Visualized orbits are unremarkable. The visualized sinuses are clear. The mastoids are clear. The calvarium is intact. No significant interim change Impression: Negative The CT scanner at [facility] is accredited by the [employer] and the scans are performed using protocols designed to limit radiation exposure to as low as reasonably achievable to attain images of sufficient resolution adequate for diagnostic evaluation.
[2019-02-23] MEDS ORDERED: GABAPENTIN300 MG ORAL (13:19)
[2019-02-23 13:33] VITALS: BP 132/75
--- NOTE | 2019-02-23 13:34 | NUR ---
ER DISCHARGE NOTE: Patient is cleared to be discharged per ERMD, pt is aox4, on room air, with stable vital signs. pt was given dc and prescription instructions, pt was able to verbalize understanding, pt id band removed. pt is able to ambulate with steady gait. pt took all belongings.
--- NOTE | 2019-02-24 17:08 | Cardiology Report ---
APPROVED REPORT EKG Measurement Heart [id number] Normal sinus rhythm Normal ECG
== END 2019-02-23 13:34 | disposition home or self-care (01) ==
LOC: EMR 12:11
DX: M26.609 Unspecified temporomandibular joint disorder, unspecified side (principal); R00.2 Palpitations; K21.9 Gastro-esophageal reflux disease without esophagitis; Z88.6 Allergy status to analgesic agent
CPT/HCPCS: 70450; 93005; 96372; 99284

== ENCOUNTER 2019-03-03 08:35 | Emergency (ER) | payer MEDICAID ==
[~2019-03-03] VITALS: Ht 162.6 cm; Wt 72.6 kg
[~2019-03-03 08:35] MED LIST changes: +GABAPENTIN300 MG ORAL
[2019-03-03 08:40] VITALS: BP 107/66
--- NOTE | 2019-03-03 08:47 | NUR ---
ED Nurse Note: Patient walked into ED c/o pain on the left side of her face that radiates to her left arm. patient reports she extracted wisdom tooth about 1 month ago and pain started since then. patient visited [facility] on 02/23/19 for the same symptoms. patient reports appointment with jaw specialist today, but patient reports the pain is unbearable. patient is alert awake x4 ambulatory, breathing unlabored and even.
[2019-03-03] MEDS ORDERED: TRILEPTAL300 MG PO ×3 (09:38→09:51)
[2019-03-03] MEDS ORDERED: CLARITIN10 MG ORAL ×3 (09:38→09:51)
[2019-03-03 10:10] VITALS: BP 107/66
--- NOTE | 2019-03-03 10:10 | NUR ---
ER DISCHARGE NOTE: Patient is cleared to be discharged per ERMD DR Blank, pt is aox4, on room air, with stable vital signs. pt was given dc and prescription instructions, pt was able to verbalize understanding, pt id band removed without complications. pt is able to ambulate with steady gait. pt took all belongings.
--- NOTE | 2019-03-04 18:26 | Cardiology Report ---
APPROVED REPORT EKG Measurement Heart [id number] Normal sinus rhythm Normal ECG
--- NOTE | 2019-03-09 21:56 | Emergency Room Report ---
History of Present Illness General Chief Complaint: Pain Source: Patient, Medical Record Present Illness HPI Patient is a 43-year-old female presents after increased facial pain.Patient reports having a recent dental extraction. She states she has been having increased pain for the past 1 week. She had previous been told that she had some arthritis in her temporomandibular joint. She had been having some associated discomfort to her upper extremity. Patient denies any cardiac history. She reports having sharp pain which did not radiate. This is worse with movement. Patient reports having some facial pain. She denies any visual changes. Patient is reportedly to see oral surgery today. Allergies: Coded Allergies: IBUPROFEN (Verified Allergy, Severe, 04/18/18) abd ulcer Patient History Past Medical History: see triage record Last Menstrual Period: 02/23/19 Reviewed Nursing Documentation: PMH: Agreed; PSxH: Agreed Nursing Documentation-PMH Past Medical History: No History, Except For Hx Cardiac Problems: No - SCIATICA Hx Diabetes: Yes - Gestational Hx Gastrointestinal Problems: Yes - GERD Review of Systems All Other Systems: negative except mentioned in HPI Physical Exam Sp02 EP Interpretation: reviewed, normal General Appearance: normal inspection, well appearing, no apparent distress, alert, GCS 15, non-toxic Head: atraumatic ENT: normal ENT inspection, hearing grossly normal, normal voice, other - tenderness to left cheek Neck: normal inspection, full range of motion, supple, no bony tend Respiratory: normal inspection, lungs clear, normal breath sounds, no respiratory distress, no retraction, no wheezing Cardiovascular #1: regular rate, rhythm, no edema Gastrointestinal: normal inspection, normal bowel sounds, non tender, soft, no guarding, no hernia Genitourinary: no CVA tenderness Musculoskeletal: normal inspection, back normal, normal range of motion Neurologic: normal inspection, alert, oriented x3, responsive, floor worker III-XII nml as tested, motor strength/tone normal, speech normal Psychiatric: normal inspection, judgement/insight normal, mood/affect normal Medical Decision Making Diagnostic Impression: Primary Impression: Facial pain ER Course Presented for facial pain. Differential diagnosis include was not limited to trigeminal neuralgia, myocardial infarction, peripheral neuropathy, sinusitis among others. Because of complexity of patient's case imaging studies were ordered. CT the head read by radiology had no evidence of acute intracranial pathology. EKG interpreted by me showed normal sinus rhythm without acute ST or T wave changes. Patient appears to have some hyperesthesia to the left cheek. She was given prescription for medications for pain. Patient was to follow-up with oral surgeon as previously scheduled appointment today. Patient to return if worse. Status: improved Disposition: HOME, SELF-CARE Condition: Stable Scripts Oxcarbazepine (TRILEPTAL) 300 Mg Tablet 300 MG PO DAILY for pain, #30 TAB Prov: Luis Miguel Blank MD 03/03/19 Loratadine (CLARITIN) 10 Mg Tablet 10 MG ORAL DAILY, #10 TAB Prov: Luis Miguel Blank MD 03/03/19 Patient Instructions: Viral Respiratory Infection Luis Miguel Blank MD Mar 09, 2019 21:56
== END 2019-03-03 10:10 | disposition home or self-care (01) ==
LOC: EMR 09:11
DX: R51 Headache (principal); K21.9 Gastro-esophageal reflux disease without esophagitis; Z88.6 Allergy status to analgesic agent
CPT/HCPCS: 82962; 93005; 99282

== ENCOUNTER 2019-05-31 17:12 | Emergency (ER) | payer MEDICAID ==
[~2019-05-31] VITALS: Ht 162.6 cm; Wt 72.6 kg
[~2019-05-31 17:12] MED LIST changes: +CLARITIN10 MG ORAL; +TRILEPTAL300 MG PO
[2019-05-31 17:18] VITALS: BP 120/74
--- NOTE | 2019-05-31 17:18 | NUR ---
ED Nurse Note: Late entry. PT walked into ED from home, with flu-like symptoms, states has sore throat, was seen this past Friday at [facility]. PT has been taking amoxicillin as prescribed, but worsening sore throat. PT is A/O x 4; VS stable, no respiratory distress on RA.
--- NOTE | 2019-05-31 18:06 | Emergency Room Report ---
History of Present Illness General Chief Complaint: Flu Like Symptoms Source: Patient Present Illness HPI 44-year-old female with history of anxiety here complaining of 3 days of a 10 out of 10 sore throat and difficulty breathing and swallowing. Patient went to [facility] 2 nights ago and was diagnosed with strep throat and given amoxicillin. Patient reports that she was given a Toradol injection while at [facility] that she complained of a lot of pain and was crying. Patient reports that Toradol did not do anything. Reports that she has been taking narcotics at home. Patient is requesting something stronger. Denies fever and chills, some travel. Denies abdominal pain nausea vomiting. Patient complains of chest tightening however denies shortness of breath and palpitation. The right shoulder with his house is swollen and are not touching. Lungs are clear to auscultation. Patient with prescriptions because she was not happy with the pain management after getting prednisone as well as lidocaine viscous. Patient is shouting and talking in a condescending behavior. Allergies: Coded Allergies: IBUPROFEN (Verified Allergy, Severe, 04/18/18) abd ulcer Patient History Past Medical History: see triage record Past Surgical History: unable to obtain Pertinent Family History: none Last Menstrual Period: 05/11/2019 Now: No Immunizations: UTD Reviewed Nursing Documentation: PMH: Agreed; PSxH: Agreed Nursing Documentation-PMH Past Medical History: No Stated History Hx Cardiac Problems: No - SCIATICA Hx Diabetes: Yes - Gestational Hx Gastrointestinal Problems: Yes - GERD Review of Systems All Other Systems: negative except mentioned in HPI Physical Exam Vital Signs Date Time Temp Pulse Resp B/P (MAP) Pulse Ox O2 Delivery O2 Flow Rate FiO2 05/31/19 17:18 98.2 16 120/74 96 Room Air 05/31/19 17:18 84 Sp02 EP Interpretation: reviewed, normal General Appearance: no apparent distress, alert, GCS 15, non-toxic Head: normocephalic Eyes: bilateral eye normal inspection, bilateral eye PERRL ENT: hearing grossly normal, no angioedema, uvula midline, tonsillar swelling, pharyngeal erythema, tonsillar exudate Neck: normal inspection, full range of motion, supple Respiratory: chest non-tender, lungs clear, normal breath sounds, no rhonchi, no wheezing, speaking full sentences Cardiovascular #1: regular rate, rhythm, no edema, no murmur Gastrointestinal: normal bowel sounds, non tender, soft, non-distended, no guarding, no rebound Rectal: deferred Genitourinary: normal inspection, no CVA tenderness Musculoskeletal: back normal, gait/station normal, normal range of motion, non- tender Neurologic: alert, oriented x3, responsive, motor strength/tone normal, sensory intact, speech normal Psychiatric: judgement/insight normal, memory normal, mood/affect normal, no suicidal/homicidal ideation Skin: no rash Lymphatic: no adenopathy Medical Decision Making PA Attestation All diagnoses and treatment plans were reviewed and discussed with my supervising physician Dr. Collins Diagnostic Impression: Primary Impression: Tonsillitis with exudate Additional Impression: URI (upper respiratory infection) ER Course 44-year-old female with history of anxiety here complaining of 3 days of a 10 out of 10 sore throat and difficulty breathing and swallowing. Patient went to [facility] 2 nights ago and was diagnosed with strep throat and given amoxicillin. Patient reports that she was given a Toradol injection while at [facility] that she complained of a lot of pain and was crying. Patient reports that Toradol did not do anything. Reports that she has been taking narcotics at home. Patient is requesting something stronger. Denies fever and chills, some travel. Denies abdominal pain nausea vomiting. Patient complains of chest tightening however denies shortness of breath and palpitation. The right shoulder with his house is swollen and are not touching. Lungs are clear to auscultation. Patient with prescriptions because she was not happy with the pain management after getting prednisone as well as lidocaine viscous. Patient is shouting and talking in a condescending behavior. Ddx considered but are not limited to: strep pharyngitis, URI, tonsillitis, peritonsillar abscess, influneza Vital signs: are WNL, pt. is afebrile H&PE are most consistent with: Tonsillitis with exudate, URI ORDERS: Prednisone, lidocaine viscous, Zofran as patient expressed some nausea toward the end of my treatment ED INTERVENTIONS: Prednisone, lidocaine viscous DISCHARGE: At this time pt. is stable for d/c to home. Will provide printed patient care instructions, and any necessary prescriptions. Care plan and follow up instructions have been discussed with the patient prior to discharge. Patient left without her paperwork and prescription that she was unhappy with the pain management. Patient appears having drug-seeking behavior. Patient stable at time of discharge. Also already has a prescription for amoxicillin from [facility]. Chest X-Ray Diagnostic Results Chest X-Ray Diagnostic Results : Chest X-Ray Ordered: Yes # of Views/Limited/Complete: 1 View Indication: Shortness of Breath EP Interpretation: Yes PA Xray: Interpretation reviewed, by supervising MD, and agrees with findings. Interpretation: no consolidation, no effusion, no pneumothorax Impression: No acute disease Electronically Signed by: Adrien Good PA-C Last Vital Signs Date Time Temp Pulse Resp B/P (MAP) Pulse Ox O2 Delivery O2 Flow Rate FiO2 05/31/19 17:18 84 16 Room Air 05/31/19 17:18 98.2 120/74 (89) 96 Disposition: HOME, SELF-CARE Condition: Stable Scripts Lidocaine HCl (Lidocaine HCl Viscous) 100 Ml Solution 10 ML MM BID, #100 MG Prov: Adrien Ellington 05/31/19 Ondansetron (Zofran) 4 Mg Tablet 4 MG ORAL Q6H PRN for Nausea & Vomiting, #12 TAB Prov: Adrien Ellington 05/31/19 Oseltamivir Phosphate (Tamiflu) 75 Mg Capsule 75 MG ORAL TWICE A DAY for 5 Days, #10 CAP Prov: Adrien Ellington 05/31/19 Prednisone* (PREDNISONE*) 20 Mg Tablet 40 MG ORAL DAILY for 5 Days, #10 TAB Prov: Adrien Ellington 05/31/19 Patient Instructions: Tonsillitis, [id number], Upper Respiratory Infection, Adult, [id number] Additional Instructions: Take medication as directed, continue taking amoxicillin and was prescribed to you by [facility].follow up with primary care Adrien Griffin May 31, 2019 18:06
[2019-05-31] MEDS ORDERED: PREDNISONE20 MG ORAL (18:07)
[2019-05-31] MEDS ORDERED: TAMIFLU75 MG ORAL (18:07)
[2019-05-31] MEDS ORDERED: ZOFRAN4 M1 ORAL (18:07)
[2019-05-31] MEDS ORDERED: Lidocaine 2% Visc 15ml soln ORAL ONE (18:30)
[2019-05-31] MEDS ORDERED: LIDOCAINE20 MG/1 M1 MM (18:42)
--- NOTE | 2019-05-31 18:58 | NUR ---
ER DISCHARGE NOTE: D/C verbally given by LILO Jurado, but PT did not sign her D/C order and left ER without prescription or D/C paperwork.
[2019-05-31 19:07] VITALS: BP 120/74
--- NOTE | 2019-06-01 14:21 | Diagnostic Imaging Report ---
Indication: Chest pain Technique: One view of the chest Comparison: 11/01/2012 Findings: Lungs and pleural spaces are clear. Heart size is normal. No significant interim change Impression: No acute process
== END 2019-05-31 19:07 | disposition home or self-care (01) ==
LOC: EMR 17:45
DX: J03.90 Acute tonsillitis, unspecified (principal); J06.9 Acute upper respiratory infection, unspecified; K21.9 Gastro-esophageal reflux disease without esophagitis; Z88.8 Allergy status to other drugs, medicaments and biological substances; F41.9 Anxiety disorder, unspecified
CPT/HCPCS: 71045; J7512; Z7502; 99283